=== PATIENT | female | born 1960 | race Caucasian/White ===

== ENCOUNTER 2021-03-27 18:02 | Emergency (ER) | payer BC ==
[~2021-03-27] VITALS: Ht 165.1 cm; Wt 88.5 kg
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
--- NOTE | 2021-03-27 18:48 | NUR ---
PT SEEN AND EXAMINED BY .
[2021-03-27] MEDS ORDERED: ACETAMINOPHEN ES 500 MG TABLET ONE (18:57)
[2021-03-27] MEDS ORDERED: ACETAMINOPHEN ES 500 MG TABLET PO ONE (19:00)
--- NOTE | 2021-03-27 19:20 | NUR ---
PT IS BACK FROM THE CT SCAN
[2021-03-27] MEDS ORDERED: KETOROLAC TROMETHAMINE INJ 60 MG/2 ML VIAL IM ONE (20:00)
[2021-03-27] MEDS ORDERED: CYCLOBENZAPRINE 10 MG TABLET PO ONE (20:00)
[2021-03-27] MEDS ORDERED: CYCLOBENZAPRINE 10 MG TABLET ONE (20:09)
[2021-03-27] MEDS ORDERED: KETOROLAC TROMETHAMINE INJ 30 MG/ML VIAL ONE (20:09)
[2021-03-27] MEDS ORDERED: IBUP-1957 PO (20:09)
[2021-03-27] MEDS ORDERED: CYCL5TAB PO (20:09)
--- NOTE | 2021-03-27 20:15 | NUR ---
ORDER FOR TORADOL 30 MG IM, AND FLEXERIL 10 MG PO, VERIFIED AND READ BACK WITH DR NGUYỄN.
--- NOTE | 2021-03-27 20:25 | NUR ---
Patient discharged to home in stable condition accompanied by . Written and verbal after care instructions given. Patient verbalizes understanding of instruction. Patient ambulatory with a steady gait.
[2021-03-27 20:56] VITALS: BP 158/80
== END 2021-03-27 20:25 | disposition home or self-care (01) ==
LOC: ER 18:24
DX: S06.0X0A Concussion without loss of consciousness, initial encounter (principal); S13.4XXA Sprain of ligaments of cervical spine, initial encounter; Z88.5 Allergy status to narcotic agent; Z79.1 Long term (current) use of non-steroidal anti-inflammatories (NSAID); Z79.899 Other long term (current) drug therapy; V49.9XXA Car occupant (driver) (passenger) injured in unspecified traffic accident, initial encounter; Y93.89 Activity, other specified; Y92.89 Other specified places as the place of occurrence of the external cause; Y99.8 Other external cause status
CPT/HCPCS: 70450; 72125; 96372; 99284; J1885